=== PATIENT | female | born 1975 | race African-American/Black ===

== ENCOUNTER 2017-06-27 01:04 | Emergency (ER) | payer BC ==
[2017-06-27 02:37] VITALS: BP 123/79; PULSE 103; TEMP 99; BMI 33.0
--- NOTE | 2017-06-27 02:45 | PDOC ---
History of Present Illness - General History Source: Patient Exam Limitations: No Limitations - History of Present Illness Initial Comments: 06/27/17 03:49 The patient is a 42 year old female, with a significant past medical history of asthma, who presents to the ED for evaluation of right lower extremity swelling. The patient denies calf pain. She reportedly had a tummy tuck performed in [place] recently which she traveled by airplane back to [place]. She denies any other symptoms or complaints. Allergies: NKDA <Dottie Moser - Last Filed: 06/27/17 03:49> <Елена Berrios - Last Filed: 06/28/17 00:32> - General Chief Complaint: Pain, Acute Stated Complaint: PAIN TO RIGHT CALF Time Seen by Provider: 06/27/17 01:57 Past History <Dottie Moser - Last Filed: 06/27/17 03:49> - Suicide/Smoking/Psychosocial Hx Smoking History: Never smoked Have you smoked in the past 12 months: No Information on smoking cessation initiated: No Hx Alcohol Use: No Drug/Substance Use Hx: No <Елена Berrios - Last Filed: 06/28/17 00:32> - Past Medical History Allergies/Adverse Reactions: Allergies Allergy/AdvReac Type Severity Reaction Status Date / Time No Known Allergies Allergy Verified 06/27/17 01:48 Home Medications: Ambulatory Orders NK [No Known Home Medication] 06/27/17 Review of Systems - Review of Systems Able to Perform ROS?: Yes Comments:: 06/27/17 03:51 CONSTITUTIONAL: Absent: fever, chills, diaphoresis, generalized weakness, malaise, loss of appetite HEENT: Absent: rhinorrhea, nasal congestion, throat pain, throat swelling, difficulty swallowing, mouth swelling, ear pain, eye pain, visual Changes CARDIOVASCULAR: Absent: chest pain, syncope, palpitations, irregular heart rate, lightheadedness , peripheral edema RESPIRATORY: Absent: cough, shortness of breath, dyspnea with exertion, orthopnea, wheezing, stridor, hemoptysis GASTROINTESTINAL: Absent: abdominal pain, abdominal distension, nausea, vomiting, diarrhea, constipation, melena, hematochezia GENITOURINARY: Absent: dysuria, frequency, urgency, hesitancy, hematuria, flank pain, genital pain MUSCULOSKELETAL: (+) right lower extremity swelling. Absent: myalgia, arthralgia, joint swelling SKIN: Absent: rash, itching, pallor HEMATOLOGIC/IMMUNOLOGIC: Absent: easy bleeding, easy bruising, lymphadenopathy, frequent infections ENDOCRINE: Absent: unexplained weight gain, unexplained weight loss, heat intolerance, cold intolerance NEUROLOGIC: Absent: headache, focal weakness or paresthesias, dizziness, unsteady gait, seizure, mental status changes, bladder or bowel incontinence PSYCHIATRIC: Absent: anxiety, depression, suicidal or homicidal ideation, hallucinations. <Dottie Moser - Last Filed: 06/27/17 03:49> *Physical Exam - Vital Signs Last Vital Signs Temp Pulse Resp BP Pulse Ox 99.0 F 103 H 20 123/79 97 06/27/17 01:15 06/27/17 01:15 06/27/17 01:15 06/27/17 01:15 06/27/17 01:15 - Physical Exam Comments: 06/27/17 03:51 GENERAL: Well developed, well nourished. Awake and alert. No acute distress. HEENT: Normocephalic, atraumatic. PERRLA, EOMI. No conjunctival pallor. Sclera are non- icteric. Moist mucous membranes. Oropharynx is clear. NECK: Supple. Full ROM. No JVD. Carotid pulses 2+ and symmetric, without bruits. No thyromegaly. No lymphadenopathy. CARDIOVASCULAR: Regular rate and rhythm. No murmurs, rubs, or gallops. Distal pulses are 2+ and symmetric. PULMONARY: No evidence of respiratory distress. Lungs clear to auscultation bilaterally. No wheezing, rales or rhonchi. ABDOMINAL: Soft. Non-tender. Non-distended. No rebound or guarding. No organomegaly. Normoactive bowel sounds. MUSCULOSKELETAL Normal range of motion at all joints. No bony deformities or tenderness. No CVA tenderness. EXTREMITIES: (+) mild dependent non-pitting edema bilaterally. No Erythema. No cyanosis. No clubbing. No edema. No calf tenderness. SKIN: Warm and dry. Normal capillary refill. No rashes. No jaundice. NEUROLOGICAL: Alert, awake, appropriate. Cranial nerves 2-12 intact. Normoreflexic in the upper and lower extremities. Normal speech. Toes are down-going bilaterally. Gait is normal without ataxia. PSYCHIATRIC: Cooperative. Good eye contact. Appropriate mood and affect. <Dottie Moser - Last Filed: 06/27/17 03:49> - Vital Signs Last Vital Signs Temp Pulse Resp BP Pulse Ox 99.0 F 103 H 20 123/79 97 06/27/17 01:15 06/27/17 01:15 06/27/17 01:15 06/27/17 01:15 06/27/17 01:15 <Елена Berrios - Last Filed: 06/28/17 00:32> ED Treatment Course - RADIOLOGY Radiograph Interpretation: EXAM: Venous duplex unilateral, right lower extremity HISTORY: Pain COMPARISON: None. FINDINGS: There is no DVT in the right lower extremity. IMPRESSION: No DVT. Reji Mackay MD 06/27/2017 02:38 EST <Dottie Moser - Last Filed: 06/27/17 03:49> Medical Decision Making - Medical Decision Making 06/28/17 00:31 Pt's exam is normal, breathing is normal. ultrasound of lower extremity is negative for DVT and she appears well. Pt will follow outpatient with her pMD. <Елена Berrios - Last Filed: 06/28/17 00:32> *DC/Admit/Observation/Transfer - Attestations Scribe Attestion: 06/27/17 03:52 Documentation prepared by Dottie Moser, acting as pediatrician/medical doctor for Елена Berrios MD <Dottie Moser - Last Filed: 06/27/17 03:49> - Discharge Dispostion Admit: No <Елена Berrios - Last Filed: 06/28/17 00:32> Diagnosis at time of Disposition: Leg swelling - Discharge Dispostion Disposition: HOME Condition at time of disposition: Improved - Patient Instructions Printed Discharge Instructions: DI for Dependent Edema, DI for Peripheral Edema , Unilateral
== END 2017-06-27 03:27 | disposition home or self-care (01) ==
LOC: JER 01:04
DX: R22.41 Localized swelling, mass and lump, right lower limb (principal)
CPT/HCPCS: 93971-TC; 99281-25